=== PATIENT | female | born 1955 | race Two or more races ===

== ENCOUNTER 2020-11-22 12:27 | Emergency (ER) | payer OTHER ==
[~2020-11-22] VITALS: Ht 162.6 cm; Wt 65.0 kg
[2020-11-22] MEDS ORDERED: IBUPROFEN 800 MG TABLET PO ONE (13:15)
[2020-11-22] MEDS ORDERED: ACETAMINOPHEN/CODEINE 300-30 MG TABLET PO ONE (13:15)
[2020-11-22 15:08] VITALS: BP 123/65
== END 2020-11-22 15:37 | disposition home or self-care (01) ==
LOC: EMS 12:27
DX: S52.125A Nondisplaced fracture of head of left radius, initial encounter for closed fracture (principal); S63.502A Unspecified sprain of left wrist, initial encounter; W01.0XXA Fall on same level from slipping, tripping and stumbling without subsequent striking against object, initial encounter; Y93.89 Activity, other specified; Y92.89 Other specified places as the place of occurrence of the external cause; Y99.8 Other external cause status
CPT/HCPCS: 29105; 99284